=== PATIENT | male | born 1960 | race Hispanic/Latino ===

== ENCOUNTER 2018-06-04 08:59 | Emergency (ER) | payer SELFPAY ==
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
[2018-06-04] MEDS: MORPHINE SULFATE INJ 10 MG/ML VIAL IV ONE (09:43)
[2018-06-04] MEDS: SODIUM CHLORIDE 0.9% (FLUSH) 10 ML SYG IV PRN (09:45)
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
[2018-06-04] MEDS: KETOROLAC TROMETHAMINE INJ 30 MG/ML VIAL IV ONE (10:54)
[2018-06-04] MEDS: TETANUS,DIPHTHERIA,PERTUSSIS 1 EA SYG IM ONE (10:55)
[2018-06-04 13:50] VITALS: TEMP 98.2
[2018-06-04 13:52] VITALS: BP 149/99; O2SAT 96
== END 2018-06-04 13:50 | disposition home or self-care (01) ==
LOC: ER 08:59
DX: S16.1XXA Strain of muscle, fascia and tendon at neck level, initial encounter (principal); S80.811A Abrasion, right lower leg, initial encounter; T14.8XXA Other injury of unspecified body region, initial encounter; M25.511 Pain in right shoulder; Y92.410 Unspecified street and highway as the place of occurrence of the external cause; V69.50XA Passenger in heavy transport vehicle injured in collision with unspecified motor vehicles in traffic accident, initial encounter; Z23 Encounter for immunization
CPT/HCPCS: 36415; 70450; 71045; 72125; 73560; 80053; 81001; 85025; 90471; 90715; J1885; J2270